=== PATIENT | female | born 1945 | race Caucasian/White ===

== ENCOUNTER 2023-11-18 09:37 | Outpatient (CLI) | payer MEDICARE, OTHER, SELFPAY ==
--- NOTE | 2023-11-18 | ECG_ITS ---
[facility] Test Date: 2023-11-18 Pat Name: Debbi Leger Department: Room: Gender: Female Stock Layer: Leanna Ring : 1945 Requested By: Cathy Barnes Order Number: [id number] Mark MD: Leobardo Disla M.D. Interpretive Statements NAME OF STUDY: LEXISCAN SESTAMIBI STRESS TEST INDICATION: Chest Pain, PROCEDURE: At the baseline, the EKG revealed sinus bradycardia with nonspecific ST-T changes.. The baseline heart was 50 bpm with a blood pressue of 131/76 mm of Hg Lexiscan was infused over a period of 20 seconds. A total of 0.4 milligrams of Lexiscan was infused. The stress phase was continued for a total of 5 minutes. Heart rate at the end of the stress phase was 87 bpm with a blood pressure 140/83 mm of Hg. The EKG at the peak infusion revealed [address]ressions in leads II, III, aVF and V4 to V6. Sestamibi was injected 20 seconds after the Lexiscan infusion. Heart rate at the end of the recovery phase was 85 bpm with a blood pressure of 136/77 mm of Hg. CONCLUSION: 1. No significant EKG changes with the LexiScan infusion 2. No LexiScan induced chest pain or cardiac arrhythmia 3. Normal blood pressure and heart rate response 4. Sestamibi/sestamibi perfusion scan pending; see separate report. Electronically Signed On 11-20-2023 15:06:57 [employer] by Leobardo Disla M.D. [id number]
[2023-11-18 10:00] VITALS: BMI 28.0
--- NOTE | 2023-11-18 10:21 | NMCV_ITS ---
NM bhavya perf SPECT r/s* [id number] Debbi Leger Age: 78 Gender: F : 1945 Exam Date: 11/18/2023 10:29 Ordering Phys: Cathy Barnes Technologist: ABHINAV Arnold Exam Location: [facility] Indications: CHEST PAIN STRESS TEST Please [facility] IMAGE PROTOCOL Rest/Stress 1 Lexiscan Day Radiopharmaceutical Dose (mCi) Administration Site Administered by Rest: Tc-99m 10.7 IV ABHINAV Wing Sestamibi Stress:Tc-99m 32.3 IV ABHINAV Wing Sestamibi Rest: 18-Nov-2023 60 Discovery 630 Stress: 18-Nov-2023 30 Discovery 630 0.4mg Lexiscan. Images obtained in supine and prone position. SPECT RESULTS Technical Quality: Excellent Raw Data Analysis: Normal Image Corrections: No attenuation or motion correction applied Summed Stress Score: 16 Summed Rest Score: 4 Summed Difference Score: 12 PERFUSION FINDINGS Moderate to severely decreased tracer uptake involving the basal and mid inferior, inferolateral, and all the apical segments including the apex. Significant reversibility was noted in these regions at rest, with the supine imaging. However the prone imaging, fairly uniform tracer uptake was noted. FUNCTIONAL RESULTS (calculated via Gated SPECT) Stress Image LV EF (%): 75 Stress EDV (mL):65 TID: 1.06 Stress ESV (mL):16 FUNCTIONAL FINDINGS: LV wall motion analysis revealed no gross wall motion normalities. IMPRESSIONS 1. Myocardial perfusion imaging revealing moderate to severely decreased tracer uptake involving the inferior, inferolateral and apical regions with significant reversibility, only with the supine imaging. This may suggest ischemia in the distribution of the right coronary artery/circumflex artery. But because of inconsistency with the prone imaging, this is very questionable. Clinical correlation is recommended. 2. Normal LV ejection fraction 75%. 3. LV wall motion analysis revealing no gross wall motion abnormalities. 4. Normal LV volume Dr Leobardo Disla MD FAC (Electronically Signed) Final Date: 18 November 2023 16:41 S
[2023-11-18] MEDS: regadenoson 0.4 Mg/5 ml Syringe IVP (11:33)
[2023-11-18 11:40] VITALS: BP 136/77; PULSE 85
[2023-11-18] MEDS: ondansetron 2 mg/ML SDV 2 mL 4 MG IVP (11:49)
== END 2023-11-18 09:38 | disposition home or self-care (01) ==
PROVIDERS: Visit Provider Registered Nurse
DX: R07.9 Chest pain, unspecified (principal); R93.1 Abnormal findings on diagnostic imaging of heart and coronary circulation
CPT/HCPCS: 36415; 78452; 93017; 96374; 96375; A9500; J2405; J2785